=== PATIENT | female | born 1965 | race Caucasian/White ===

== ENCOUNTER 2016-12-20 10:20 | Observation (INO) ==
[2016-12-20] MEDS ORDERED: Ibuprofen 800 MG TABLET PO ONE (10:50)
--- NOTE | 2016-12-20 10:50 | Emergency Department Note ---
Disposition Clinical Impression: Kidney stone on right side, CHLOE (acute kidney injury), Hydronephrosis with renal calculous obstruction Disposition: Admitted As Inpatient Condition: Good Time of Disposition: 13:56 Abdominal Pain HPI - General Chief Complaint: ED Abdominal Pain Stated Complaint: R Flank Pain N/V Time Seen by Provider: 12/20/16 10:28 Source: patient Mode of arrival: ambulatory Limitations: no limitations Nursing Notes Reviewed: Yes Vital Signs Reviewed: Yes - History of Present Illness HPI Narrative: 51-year-old female presents with right flank pain and nausea. She was recently evaluated and diagnosed the right kidney stone last . He was reportedly 6 mm in size. She was given ibuprofen and Percocet to go home. She took the medications for only a day and symptoms have resolved. It wasn't until yesterday while driving home around 1700 she began to experience similar pain in the right flank and RLQ. She took Percocet at 2300 with resolution of symptoms. Since this morning she continues to have a dull ache that radiates to the right groin. Associated nausea and vomiting. Took Zofran prior to arrival with relief of symptoms. Denies any fever, recent illness, chest pain, shortness of breath. History of hysterectomy. No urinary complaints. Scheduled appointment with Dr. Bari Villalpando urologist Sunday 12/24. Pt Subjective Complaint: abdominal pain, flank pain Pain Scale: 5 - Related Data Home Medications Medication Instructions Recorded Confirmed Ibuprofen 800 mg PO Q8HR PRN 12/20/16 12/20/16 Ondansetron ODT [Zofran ODT] 4 mg SL Q6HR PRN 12/20/16 12/20/16 OxyCODONE/APAP 5/325 [Percocet 1 tab PO Q4HR PRN 12/20/16 12/20/16 5/325 MG] Allergies Allergy/AdvReac Type Severity Reaction Status Date / Time No Known Allergies Allergy Verified 12/13/16 01:09 All systems ED: reviewed and negative except as stated. Constitutional: Denies: fever, chills Cardiovascular: Denies: chest pain, dyspnea on exertion Respiratory: Denies: cough, dyspnea Gastrointestinal: Reports: abdominal pain, nausea, vomiting. Denies: diarrhea Genitourinary: Denies: urgency, dysuria, hematuria Musculoskeletal: Reports: back pain (right flank). Denies: neck pain Integumentary: Denies: rash, abrasion Neurological: Denies: headache, weakness Abdominal Pain PMH - Past Medical History Medical history: Reports: no medical history Female Surgical History: Reports: hysterectomy, other Psychiatric history: Reports: no psych history - Social History Smoking status: Never smoker Alcohol use: Reports: none Drug use: Reports: none Physical Exam - General Limitations: no limitations General appearance: alert, other (appears uncomfortable without position of ease ) - Head Head exam: atraumatic, normocephalic, normal inspection - Eye Eye exam: Present: normal appearance, PERRL, EOMI - ENT ENT exam: normal exam, normal oropharynx, mucous membranes moist - Neck Neck exam: Present: normal inspection, full ROM, trachea midline - Chest Chest inspection: Present: normal inspection, symmetric chest wall rise - Respiratory Respiratory exam: Present: normal lung sounds bilaterally. Absent: respiratory distress - Cardiovascular Cardiovascular exam: Present: regular rate, normal rhythm, normal heart sounds - Abdominal Exam Abdominal exam: Present: soft, tenderness, normal bowel sounds. Absent: distention, guarding, rebound, rigidity, psoas sign, Rovsing's sign, tenderness at McBurney's Point Abdominal tenderness: Present: RLQ - Extremities Exam Extremities exam: Present: normal inspection, full ROM, normal capillary refill. Absent: tenderness, pedal edema, calf tenderness - Back Exam Back exam: Present: normal inspection, full ROM, CVA tenderness (R). Absent: tenderness, CVA tenderness (L) - Neurological Exam Neurological exam: Present: alert, oriented X3 - Psychiatric Psychiatric exam: Present: normal affect, normal mood - Skin Skin exam: Present: warm, dry, intact, normal color Course Course Narrative: 51-year-old female with recently diagnosed renal stone. Reports nausea and vomiting with symptoms returning last night. Patient is afebrile and appears uncomfortable. She is hypertensive 172/101 likely secondary to pain and discomfort. Mucous membranes are moist. Heart and lung normal. Abdomen is soft and mildly tender to the RLQ. No McBurney's point. Pain radiates from right flank with CVA tenderness. Will check urinalysis for possible septic stone. Given sudden return of symptoms concern for obstructed stone, will repeat CT scan. Also get CBC and chemistries to evaluate kidney function. Offered percocet for discomfort but she would prefer ibuprofen at this time. No nausea as she just took Zofran. Disposition pending results. - Reevaluation(s) Reevaluation #1: Review of CT and labs. Scan reveals stone in right UVJ 6.9mm that has not moved. Will consult with on-call urologist Dr. Purvis for further management. Pain is controlled at this time after ibuprofen after offered Percocet. Mild CHLOE 1.29. Will order IV fluids. Time: 12:14 Reevaluation #2: Requested to go home and follow as an outpatient since symptoms have improved with Ibuprofen here. She continues to have Percocet and Ibuprofen with her. Spoke again with Dr. Purvis who reports no availability for outpatient surgery until Saturday, patient agrees with admission at this time. Will page hospitalist for admission. IV fluids given. Urine is not consistent with infection. Time: 12:20 - Consultations Consultation #1: Spoke with Dr. Purvis, urologist, recommends admission to hospitalist. No emergent surgery for removal at this time. Time: 12:14 Consultation #2: Spoke with hospitalist, yash Florez to admit for obstructing right kidney stone. Urology will consult. Time: 12:50 Vital Signs Temperature 98.1 F 12/20/16 10:21 Pulse Rate 82 12/20/16 10:21 Respiratory Rate 16 12/20/16 10:21 Blood Pressure 172/101 12/20/16 10:21 O2 Sat by Pulse Oximetry 95 12/20/16 10:21 Temperature 97.8 F 12/20/16 13:44 Pulse Rate 62 12/20/16 13:44 Respiratory Rate 16 12/20/16 13:44 Blood Pressure 147/83 12/20/16 13:44 O2 Sat by Pulse Oximetry 98 12/20/16 13:44 Oxygen Delivery Oxygen Delivery Room Air Abdominal Pain - Medical Records Medical records reviewed: Yes I reviewed the patient's medical records. - Lab Data Lab results reviewed: Yes I reviewed the patient's lab results. Result diagrams: 12/20/16 11:22 12/20/16 11:22 Lab Results 12/20/16 12/20/16 12/20/16 Range/Units 10:35 11:22 11:22 WBC 10.8 (4.3-11.1) K/mcL RBC 4.95 (3.82-4.97) M/mcL Hgb 13.9 (11.5-15.4) g/dL Hct 42.2 (35.3-44.9) % MCV 85.3 (83.0-100.0) fL MCH 28.1 (28.0-33.3) pg MCHC 32.9 (31.6-35.5) g/dL RDW 12.8 (11.5-14.5) % Plt Count 261 (140-400) K/mcL MPV 9.7 (9.4-12.4) fL Immature Gran % 0.4 (0-4) % Seg Neutrophils % 78.6 % Lymphocytes % 12.1 % Monocytes % 8.2 % Eosinophils % 0.1 % Basophils % 0.6 % Neutrophils # 8.5 (1.6-8.9) K/mcL Lymphocytes # 1.3 (0.6-4.6) K/mcL Monocytes # 0.9 (0.0-1.3) K/mcL Eosinophils # 0.0 (0.0-0.6) K/mcL Basophils # 0.1 (0.0-0.2) K/mcL Sodium 138 (136-145) mEq/L Potassium 4.0 (3.5-4.5) mEq/L Chloride 105 (98-109) mEq/L Carbon Dioxide 24 (19-29) mEq/L BUN 16 (7-20) mg/dL Creatinine 1.29 H (0.57-1.11) mg/dL Est GFR ( Amer) 53 L (> 60) Est GFR (Non-Af Amer) 44 L (> 60) BUN/Creatinine Ratio 12 (6-26) Glucose 105 H (70-99) mg/dL Calculated Osmolality 288 (280-300) Calcium 9.5 (8.6-10.8) mg/dL Urine Color Yellow (Yellow) Urine Clarity Clear (Clear) Urine pH 7.0 (5.0-8.0) pH Units Ur Specific [place] 1.015 (1.010-1.025) Urine Protein Negative (Neg-Trace) mg/dL Urine Glucose (UA) Normal (Normal) mg/dL Urine Ketones Negative (Negative) mg/dL Urine Blood Negative (Negative) Urine Nitrite Negative (Negative) Urine Bilirubin Negative (Negative) Urine Urobilinogen Normal (Normal) mg/dL Ur Leukocyte Esterase Negative (Negative) Ur Culture Indicated? NO (NO) - Radiology Data Radiology results reviewed: Yes I reviewed the patient's radiology results. Abdomen/Pelvis CT 12/20/16 11:14 IMPRESSION: Again identified is a 3.5 x 6.9 mm distal right ureteral stone, which is unchanged in position compared to the previous examination with moderate associated hydronephrosis and hydroureter. Again identified are 2 separate 3 mm noncalcified nodules in the right lung base. Follow-up recommendations previously described, as below. No other acute process seen. RECOMMENDATIONS: Fleischner Society guidelines for follow-up and management of incidentally detected pulmonary nodules: Multiple Solid Nodules: Nodule size less than 6 mm In a low-risk patient, no routine follow-up. In a high-risk patient, optional CT at 12 months. - Low risk patients include individuals with minimal or absent history of smoking and other known risk factors. - High risk patients include individuals with a history or smoking or known risk factors. Radiology 2017 http://pubs.rsna.org/doi/full/10.1148/radiol.[email or web address] D/ / Everton Milan MD / Everton Milan MD Interpreting Provider: Everton Milan MD
--- NOTE | 2016-12-20 11:23 | Emergency Department Note ---
START Narrative - START START: I examined this patient and my medical decision-making was reviewed with the LIVING ADVISOR/PA/Advanced Practice Nurse/Resident Physician. I agree with the documented findings, disposition and treatment plan as described except to the extent set forth below. ED attending note: Patient seen with emergency medicine resident Dr. Bhatia. Please see a copy of his note for details of the H&P, evaluation, management and disposition of this patient. We independently had [id number] contact with the patient Briefly: A 51-year-old female seen at [facility] last week and worked up and diagnosed with ureteral stone. About 6 mm at the UVJ. She has been asymptomatic until this morning where her pain which she said was identical to her presentation a week ago. And some nausea. Denies fever or chills. Patient will have a urinalysis lab work and repeat CT. Patient getting analgesics. Disposition pending.
[2016-12-20 11:36] LABS: Eosinophils % 0.1 %; Hematocrit 42.2 % (35.3-44.9); Hemoglobin 13.9 g/dL (11.5-15.4); Immature Granulocytes % 0.4 % (0-4); Lymphocytes % 12.1 %; Mean Corpuscular HGB Conc 32.9 g/dL (31.6-35.5); Mean Corpuscular Hemoglobin 28.1 pg (28.0-33.3); Mean Corpuscular Volume 85.3 fL (83.0-100.0); Mean Platelet Volume 9.7 fL (9.4-12.4); Monocytes % 8.2 %; Platelet Count 261 K/mcL (140-400); Red Blood Count 4.95 M/mcL (3.82-4.97); Red Cell Distribution Width 12.8 % (11.5-14.5); Segmented Neutrophils % 78.6 %
[2016-12-20 11:37] LABS: Basophils # 0.1 K/mcL (0.0-0.2); Basophils % 0.6 %; Lymphocytes # 1.3 K/mcL (0.6-4.6); Monocytes # 0.9 K/mcL (0.0-1.3); Neutrophils # 8.5 K/mcL (1.6-8.9)
[2016-12-20 11:41] LABS: Calcium 9.5 mg/dL (8.6-10.8)
[2016-12-20 12:05] LABS: Bilirubin,Urine Negative (Negative); Blood,Urine Negative (Negative); Clarity,Urine Clear (Clear); Color,Urine Yellow (Yellow); Glucose,Urine (UA) Normal (Normal); Ketones,Urine Negative (Negative); Leukocyte Esterase,Urine Negative (Negative); Nitrite,Urine Negative (Negative); Protein,Urine Negative (Neg-Trace); Specific Gravity,Urine 1.015 (1.010-1.025); Urobilinogen,Urine Normal (Normal)
[2016-12-20] MEDS ORDERED: 0.9 % Sodium Chloride 1,000 ML IVC ONE (12:29)
[2016-12-20] MEDS ORDERED: Naloxone 0.4 MG/ML INJ IVP PRN (13:57)
[2016-12-20] MEDS ORDERED: Ondansetron 4 MG/2 ML VIAL IVP PRN (13:58)
[2016-12-20] MEDS ORDERED: *HR* Morphine 2 MG/ML SYRINGE IVP PRN (13:58)
[2016-12-20] MEDS ORDERED: 0.9 % Sodium Chloride 1,000 ML IVC SCH (14:00)
--- NOTE | 2016-12-20 14:06 | Internal Med History&Physical ---
<Chanell Olivares - Last Filed: 12/20/16 14:22> Date of Encounter: 12/20/16 Time of Encounter: 14:01 Assessment and Plan (1) CHLOE (acute kidney injury) Current visit: Yes Status: Acute 1 patient's creatinine is 1.29. Baseline is around 0.74. related to stone obstruction. We will continue to monitor creatinine 2 continue with IV fluids 3 avoid nephrotoxins no NSAIDs 4 monitor intake and output (2) Kidney stone on right side Current visit: Yes Status: Acute 1 patient was diagnosed with 3.5 x 6.9 right ureteral stone week was given pain medication and anti-emetics and was sent home. Patient was doing well until last evening when she developed pain nausea and vomiting unable to keep down pain medication. Repeat CT of abdomen revealed stone in same position with moderate associated hydronephrosis and hydroureter. I did consult urology and spoke with Dr. Purvis he states he will see the patient today with possible intervention tomorrow morning. 2 patient nothing by mouth after midnight 3 continue with IV fluids 4 continue with pain medication and antiemetic (3) Pulmonary nodule Current visit: No Status: Acute (4) DVT prophylaxis Current visit: Yes Status: Acute [place] [facility] Internal Medicine - H&P: HPI Admitted From: Emergency Dept Plans for Post Hospital Care: Home History of present illness: Ms. Holloway is a 51 year old female no past medical history. According to the patient she was here last was diagnosed with 33.5 x 6.9 mm distal right ureteral stone at that time she was given pain medication as well as antiemetics and was sent home. She said she was doing well and was pain-free up until approximately 5:30 PM last night when she experienced a sharp stabbing pain in right lower abdomen. she did take her pain medication and did relieve her pain however the proxy 12:30 the pain returned was more intense again she took medication it eased the pain this morning she developed nausea and vomiting was unable to keep anything down. She did take an antiemetic which did ease the vomiting. She denies any fevers chills diarrhea chest pain shortness of breath She presented to the ER with the above complaints according to ER records lab work did reveal patient did have some AK I with creatinine 1.29. Appears her baseline is around 0.74. Patient states that she has been able to eat and drink up until yesterday and has been urinating without difficulty. CT scan of abdomen and pelvis again identified a 3.5 x 6.9 mm distal right ureteral stone with moderate associated hydronephrosis and hydroureter. ER physician speaks with Dr. Suarez urology, advised to admit patient Patient has been admitted for further workup and evaluation. Presently patient complains of very mild right-sided lower abdominal pain she rates at 2 out of 10 dull. She does not appear to be in respiratory distress denies any chest pain or shortness of breath her lung sounds are clear heart sounds S1 and S2 with no rubs clicks, murmurs noted abdomen soft nontender palpation no lower extremity edema noted. Presently she is hemodynamically stable. I reviewed this case with who agrees with plan. Past Med Surg Social Fam HX - Past Medical History Medical history: no medical history Psychiatric history: no psych history - Social History Smoking Status: Never smoker Smokeless Tobacco Status: No Alcohol use: none Drug use: none - Additional Family History Additional family history: Reviewed and noncontributory Internal Medicine - H&P: Meds Ibuprofen 800 mg PO Q8HR PRN 12/20/16 [History] Ondansetron ODT [Zofran ODT] 4 mg SL Q6HR PRN 12/20/16 [History] OxyCODONE/APAP 5/325 [Percocet 5/325 MG] 1 tab PO Q4HR PRN 12/20/16 [History] Allergies No Known Allergies Allergy (Verified 12/13/16 01:09) All Systems PM: A 10-system review of systems was performed and is negative for pertinent findings except as documented above in the HPI. - Constitutional Constitutional: no chills, no fever(s), no night sweats - EENT Eyes: no change in vision, no discharge, no pain, no photophobia Nose, mouth and throat: no dysphagia, no nasal discharge, no neck pain, no sore throat - Cardiovascular Cardiovascular ROS IM: no chest pain, no diaphoresis, no dyspnea, no lightheadedness, no palpitations, no syncope - Respiratory Respiratory: no cough, no dyspnea, no wheezing, no excessive phlegm production - Gastrointestinal Gastrointestinal: abdominal pain, nausea, vomiting - Genitourinary Genitourinary: no change in urinary stream, no dysuria, no flank pain, no hematuria - Musculoskeletal Musculoskeletal ROS IM: no numbness, no tingling - Integumentary Integumentary IM: no rash, no unusual bruising - Neurological Neurological ROS: no confusion, no convulsions, no focal weakness, no numbness, no tingling, no tremor(s) - Constitutional Vitals: Temp Pulse Resp BP Pulse Ox 97.8 F 62 16 147/83 98 12/20/16 13:44 12/20/16 13:44 12/20/16 13:44 12/20/16 13:44 12/20/16 13:44 General appearance: Present: A&O X 3, answers questions appropriately - Head Head exam: Present: atraumatic, normocephalic - Eye Eye exam: Present: PERRL, conjuntiva pink, sclera anicteric Pupils: Present: PERRL - Neck Neck exam general surgery: Present: supple, trachea midline. Absent: lymphadenopathy - Respiratory Respiratory exam: Present: CTAB. Absent: accessory muscle use, rales, rhonchi, wheezes - Cardiovascular Cardiovascular exam: Present: RRR, +S1, +S2. Absent: diastolic murmur, gallop, rubs, systolic murmur - GI/Abdominal GI/Abdominal exam: Present: normal bowel sounds, soft, no peritoneal signs. Absent: distended, tenderness - Extremities Exam Extremities exam: Present: warm, radial pulses palpable and symetrical. Absent : calf tenderness, cyanotic, pedal edema - Neurological Exam Neurological exam: Present: CN II-XII intact, oriented X3, no focal deficits. Absent: pronater drift, facial droop, speech deficit - Skin Skin exam: Present: dry, intact Internal Med - H&P Results - Labs CBC & Chem 7: 12/20/16 11:22 12/20/16 11:22 - Diagnostic Studies Other Images Additional comments: Abdomen/Pelvis CT 12/20/16 11:14 IMPRESSION: Again identified is a 3.5 x 6.9 mm distal right ureteral stone, which is unchanged in position compared to the previous examination with moderate associated hydronephrosis and hydroureter. Again identified are 2 separate 3 mm noncalcified nodules in the right lung base. Follow-up recommendations previously described, as below. No other acute process seen. RECOMMENDATIONS: Fleischner Society guidelines for follow-up and management of incidentally detected pulmonary nodules: Multiple Solid Nodules: Nodule size less than 6 mm In a low-risk patient, no routine follow-up. In a high-risk patient, optional CT at 12 months. - Low risk patients include individuals with minimal or absent history of smoking and other known risk factors. - High risk patients include individuals with a history or smoking or known risk factors. Radiology 2017 http://pubs.rsna.org/doi/full/10.1148/radiol.3028933152 D/ / Everton Milan MD / Everton Milan MD Interpreting Provider: Everton Milan MD <Craig Shelton - Last Filed: 12/20/16 19:58> Date of Encounter: 12/20/16 Internal Medicine - H&P: HPI History of present illness: Ms. Holloway is a 51 year old female All Systems PM: A 10-system review of systems was performed and is negative for pertinent findings except as documented above in the HPI. - Constitutional Vitals: Temp Pulse Resp BP Pulse Ox 99.5 F 68 18 138/85 97 12/20/16 19:30 12/20/16 19:30 12/20/16 19:30 12/20/16 19:30 12/20/16 19:30 Internal Med - H&P Results - Labs CBC & Chem 7: 12/20/16 11:22 12/20/16 11:22 - Attending Attestation I examined this patient and my medical decision-making was reviewed with the DIE MAKER STAMPING/PA/Advanced Practice Nurse/Resident Physician. I agree with the documented findings, disposition and treatment plan as described except to the extent set forth below. She did not and admitted with right lower quadrant abdominal pain. Currently she tells me that the pain is mild and tolerable. On exam she is in no acute distress awake alert oriented. Heart is regular. Lungs are clear to auscultation bilaterally. Abdomen is soft and nontender Plan: IV fluids, IV opiates for pain. IV Zofran for nausea. Nothing by mouth after midnight. Stone extraction tomorrow if she does not pass. She is at high risk for morbidity and mortality and complications due to treatment with IV controlled substances.
[2016-12-20] MEDS: *HR* HYDROcodone/Acet 5/325 mg TABLET PO PRN ×2 (14:43→22:29)
--- NOTE | 2016-12-20 16:30 | Urology - Consult Note ---
Date of Encounter: 12/20/16 Time of Encounter: 16:27 - Assessment and Plan (1) Right ureteral stone Current Visit: Yes Status: Acute Assessment and plan: plan on medical expulsion today. if has not passed stone by tomorrow will plan on surgical removal. Urology CN:KESHIA Consult date: 12/20/16 Reason for consult Urology: Other (right ureteral stone) Requesting physician: Chanell Olivares History of present illness: Sari is a 51 y/o female with 1 week of right flank pain. she was found last week to have a distal right ureteral stone. She came back to the ED today secondary to right flank pain. 10/10 sharp in nature. + nausea. Has had some sig HTN when arrival to the ED. Pain better controlled at this time. stone is 3x6mm in right distal ureter. Past Med Surg Social Fam HX - Past Medical History Medical history: no medical history Psychiatric history: no psych history - Past Surgical History Surgical History: hysterectomy - Social History Smoking Status: Never smoker Smokeless Tobacco Status: No Alcohol use: none Drug use: none Medications and Allergies Ibuprofen 800 mg PO Q8HR PRN 12/20/16 [History] Ondansetron ODT [Zofran ODT] 4 mg SL Q6HR PRN 12/20/16 [History] OxyCODONE/APAP 5/325 [Percocet 5/325 MG] 1 tab PO Q4HR PRN 12/20/16 [History] Allergies No Known Allergies Allergy (Verified 12/13/16 01:09) Review of Systems - Constitutional no chills - EENT Nose, mouth and throat: no dizziness - Cardiovascular no chest pain - Respiratory no cough - Gastrointestinal no abdominal pain Exam Initial Vital Signs Temp Pulse Resp BP Pulse Ox 98.1 F 82 16 172/101 95 12/20/16 10:21 12/20/16 10:21 12/20/16 10:21 12/20/16 10:21 12/20/16 10:21 - General physical appearance Present: well developed - Respiratory Present: normal respiratory effort - Cardiovascular Cardiovascular exam IM: RRR - Abdomen Abdomen: Present: soft - Integumentary Present: no rash - Neurologic Present: normal coordination Urology Results - Labs 12/20/16 11:22 12/20/16 11:22 Abnormal lab results Creatinine 1.29 mg/dL (0.57-1.11) H 12/20/16 11:22 Est GFR ( Amer) 53 (> 60) L 12/20/16 11:22 Est GFR (Non-Af Amer) 44 (> 60) L 12/20/16 11:22 Glucose 105 mg/dL (70-99) H 12/20/16 11:22 All other labs normal. - Imaging CT scan - abdomen: image reviewed CT scan - pelvis: image reviewed Consult Discharge Plan - Plan Referrals: Shannon Anthony MD [Partnered Physician] - 12/31/16 10:45 am
--- NOTE | 2016-12-20 20:56 | Anesthesia Evaluation PreOp ---
Date of Encounter: 12/20/16 Time of Encounter: 20:45 - Past History Planned Operation: Rt USE Cardiac History: Denies any Significant Hx Pulmonary History: Denies Any Significant HX CONSULTING BUSINESS DEVELOPER History: Denies Any Significant HX Other Medical History: Denies Any Significant HX Anesthesia History: No Prior Anesthetic Complications : No (Hysterectomy) Alcohol Use: none Drug use: none Medications and Allergies Ibuprofen 800 mg PO Q8HR PRN 12/20/16 [History] Ondansetron ODT [Zofran ODT] 4 mg SL Q6HR PRN 12/20/16 [History] OxyCODONE/APAP 5/325 [Percocet 5/325 MG] 1 tab PO Q4HR PRN 12/20/16 [History] Allergies No Known Allergies Allergy (Verified 12/13/16 01:09) - Meds/Allergy Pre-op Review Medications Reviewed: Yes Allergies Reviewed: Yes Beta Blockers on Current Med List: No Anesthesia Results - Labs 12/20/16 11:22 12/20/16 11:22 Anesthesia Exam O2 Sat Height 1.65 m Height 1.65 m Weight 81.42 kg Weight 81.556 kg O2 Sat by Pulse Oximetry 97 O2 Sat by Pulse Oximetry 98 O2 Sat by Pulse Oximetry 97 O2 Sat by Pulse Oximetry 95 Vital Signs Temp Pulse Resp BP Pulse Ox 98.1 F 82 16 172/101 95 12/20/16 10:21 12/20/16 10:21 12/20/16 10:21 12/20/16 10:21 12/20/16 10:21 Height: 5'5 Weight: 179 lbs NPO (# of Hours): MN Pain Scale: 0 - HEENT Pupil (Motor): Pupils equal, EOMI Mallampati: II Teeth: Normal Oral Opening: Greater than 3 - CONSULTING BUSINESS DEVELOPER LOC: Oriented CONSULTING BUSINESS DEVELOPER Motor: Normal RUE, Normal LUE, Normal RLE, Normal LLE, Normal Face CONSULTING BUSINESS DEVELOPER Sensory: Normal: RUE, LUE, RLE, LLE, Face - Cardiac Rhythm: Regular Murmur: None JVD: No Carotid Bruit: No - Pulmonary Breath Sounds: bilateral Clear Respiratory Effort: Symmetrical Anesthesia Assess/Plan ASA Score: 1 Modified Holloway Scale for Level of Consciousness: Cooperative, oriented, and tranquil Anesthetic Plan: General Recovery Plan: PACU (Discussed GA, agrees to proceed)
[2016-12-20] MEDS: 0.9 % Sodium Chloride 1,000 ML IVC SCH (22:40)
[2016-12-21] MEDS: 0.9 % Sodium Chloride 1,000 ML IVC SCH (05:36)
[2016-12-21 06:28] LABS: Basophils # 0.1 K/mcL (0.0-0.2); Basophils % 1.1 %; Eosinophils # 0.1 K/mcL (0.0-0.6); Hematocrit 36.1 % (35.3-44.9); Immature Granulocytes % 0.2 % (0-4); Immature Platelets 2.3 % (1.1-6.1); Lymphocytes # 1.9 K/mcL (0.6-4.6); Lymphocytes % 34.5 %; Mean Corpuscular HGB Conc 33.2 g/dL (31.6-35.5); Mean Corpuscular Hemoglobin 28.6 pg (28.0-33.3); Mean Corpuscular Volume 86.2 fL (83.0-100.0); Mean Platelet Volume 10.1 fL (9.4-12.4); Monocytes # 0.7 K/mcL (0.0-1.3); Monocytes % 12.5 %; Neutrophils # 2.8 K/mcL (1.6-8.9); Platelet Count 216 K/mcL (140-400); Red Blood Count 4.19 M/mcL (3.82-4.97); Red Cell Distribution Width 13.1 % (11.5-14.5); Segmented Neutrophils % 49.7 %
[2016-12-21 06:42] LABS: BUN/Creatinine Ratio 11 (6-26); Blood Urea Nitrogen 10 mg/dL (7-20); Calcium 8.5 mg/dL (8.6-10.8); Carbon Dioxide 24 mEq/L (19-29); Chloride 110 mEq/L (98-109); Glucose 90 mg/dL (70-99); Osmolality,Calculated 289 (280-300); Potassium 3.7 mEq/L (3.5-4.5); Sodium 140 mEq/L (136-145); eGFR For African Americans > 60 (> 60); eGFR For Non-African Americans > 60 (> 60)
--- NOTE | 2016-12-21 07:25 | Urology Progress Note ---
Date of Encounter: 12/21/16 Time of Encounter: 07:25 - Assessment and Plan (1) Right ureteral stone Current Visit: Yes Status: Acute Assessment and plan: to OR today for stone extraction. Progress Note Narrative: Patient seen. has not passed stone. pain controlled. Objective Initial Vital Signs Temp Pulse Resp BP Pulse Ox 98.1 F 82 16 172/101 95 12/20/16 10:21 12/20/16 10:21 12/20/16 10:21 12/20/16 10:21 12/20/16 10:21 - General physical appearance Present: well developed - Abdomen Present: soft - Labs 12/21/16 06:11 12/21/16 06:11 Diabetes panel 12/21/16 Range/Units 06:11 Sodium 140 (136-145) mEq/L Potassium 3.7 (3.5-4.5) mEq/L Chloride 110 H (98-109) mEq/L Carbon Dioxide 24 (19-29) mEq/L BUN 10 (7-20) mg/dL Creatinine 0.95 (0.57-1.11) mg/dL Glucose 90 (70-99) mg/dL Calcium 8.5 L (8.6-10.8) mg/dL Calcium panel 12/21/16 Range/Units 06:11 Calcium 8.5 L (8.6-10.8) mg/dL Pituitary panel 12/21/16 Range/Units 06:11 Sodium 140 (136-145) mEq/L Potassium 3.7 (3.5-4.5) mEq/L Chloride 110 H (98-109) mEq/L Carbon Dioxide 24 (19-29) mEq/L BUN 10 (7-20) mg/dL Creatinine 0.95 (0.57-1.11) mg/dL Glucose 90 (70-99) mg/dL Calcium 8.5 L (8.6-10.8) mg/dL Adrenal panel 12/21/16 Range/Units 06:11 Sodium 140 (136-145) mEq/L Potassium 3.7 (3.5-4.5) mEq/L Chloride 110 H (98-109) mEq/L Carbon Dioxide 24 (19-29) mEq/L BUN 10 (7-20) mg/dL Creatinine 0.95 (0.57-1.11) mg/dL Glucose 90 (70-99) mg/dL Calcium 8.5 L (8.6-10.8) mg/dL Consult Discharge Plan - Plan Referrals: Shannon Anthony MD [Partnered Physician] - 12/31/16 10:45 am
[2016-12-21] MEDS ORDERED: *HR* Midazolam HCl 2 MG/2 ML VIAL ONE (07:52)
[2016-12-21] MEDS ORDERED: Dexamethasone 4 MG/ML VIAL ONE (07:52)
[2016-12-21] MEDS ORDERED: *HR* FentaNYL (PF) 100 MCG/2 ML VIAL ONE (07:52)
[2016-12-21] MEDS ORDERED: *HR* Propofol 200 MG/20 ML VIAL IVP ONE (07:52)
[2016-12-21] MEDS ORDERED: Ondansetron 4 MG/2 ML VIAL ONE (07:52)
[2016-12-21] MEDS ORDERED: Lidocaine -MPF 2% 2 ML VIAL ONE (07:52)
--- NOTE | 2016-12-21 09:47 | Internal Med Progress Note ---
Date of Encounter: 12/21/16 Time of Encounter: 09:45 - Assessment and plan (1) Pulmonary nodule Current Visit: No Status: Acute Assessment and plan: 3 mm of multiple pulmonary nodule on the right side of undetermined significance. She will be referred to pulmonology as outpatient for follow-up. Further imaging will be performed during this hospital stay. According to radiology the size of the nodule has not changed from the previous CAT scan. (2) CHLOE (acute kidney injury) Current Visit: Yes Status: Acute Assessment and plan: Mildly elevated creatinine in the range of 1.3 which is improved with hydration now it is back to normal (3) Hydronephrosis with renal calculous obstruction Current Visit: Yes Status: Acute Assessment and plan: Right ureteric 3.5/6.9 mm stone which has failed medical treatment and causing symptoms including hydronephrosis therefore patient will be going for surgery. (4) Right ureteral stone Current Visit: Yes Status: Acute Assessment and plan: right ureteric 3.5/6.9 mm stone which has failed medical treatment and causing symptoms including hydronephrosis therefore patient will be going for surgery. - Subjective Interval history: Mrs. Sari Holloway is a 51-year-old female with no significant past medical history presented with 1 week history of right renal colic with a 3.5 mm/6.9 mm right ureteric stone demonstrated on CAT scan. She failed medical treatment and urology has seen her and Dr. Ranjan Purvis is planning to take her to OR today. For this reason she is only on SCDs for DVT prophylaxis. - Constitutional Vitals: Temp Pulse Resp BP Pulse Ox 98.1 F 68 18 115/78 95 12/21/16 07:36 12/21/16 07:36 12/21/16 07:36 12/21/16 07:36 12/21/16 07:36 General appearance: Present: A&O X 3, answers questions appropriately - Head Head exam: Present: atraumatic, normocephalic - Eye Eye exam: Present: PERRL, conjuntiva pink, sclera anicteric Pupils: Present: PERRL - Neck Neck exam general surgery: Present: supple, trachea midline. Absent: lymphadenopathy - Respiratory Respiratory exam: Present: CTAB. Absent: accessory muscle use, rales, rhonchi, wheezes - Cardiovascular Cardiovascular exam: Present: RRR, +S1, +S2. Absent: diastolic murmur, gallop, rubs, systolic murmur - GI/Abdominal GI/Abdominal exam: Present: normal bowel sounds, soft, no peritoneal signs. Absent: distended, tenderness - Extremities Exam Extremities exam: Present: warm, radial pulses palpable and symetrical. Absent : calf tenderness, cyanotic, pedal edema - Neurological Exam Neurological exam: Present: CN II-XII intact, oriented X3, no focal deficits. Absent: pronater drift, facial droop, speech deficit - Skin Skin exam: Present: dry, intact Internal Medicine: Result - Labs CBC & Chem 7: 12/21/16 06:11 12/21/16 06:11 Labs: Short CBC 12/21/16 Range/Units 06:11 WBC 5.6 (4.3-11.1) K/mcL Hgb 12.0 D (11.5-15.4) g/dL Hct 36.1 (35.3-44.9) % Plt Count 216 (140-400) K/mcL Neutrophils # 2.8 (1.6-8.9) K/mcL BMP 12/21/16 06:11 Sodium 140 Potassium 3.7 Chloride 110 H Carbon Dioxide 24 BUN 10 Creatinine 0.95 Glucose 90 Calcium 8.5 L Consult Discharge Plan - Plan Referrals: Shannon Anthony MD [Partnered Physician] - 12/31/16 10:45 am
--- NOTE | 2016-12-21 09:54 | Discharge Summary ---
Date of Encounter: 12/21/16 Time of Encounter: 14:48 - Discharge Diagnosis (1) Pulmonary nodule Priority: Secondary Status: Acute (2) CHLOE (acute kidney injury) Priority: Secondary Status: Acute (3) Hydronephrosis with renal calculous obstruction Priority: Secondary Status: Acute (4) Right ureteral stone Priority: Primary Status: Acute - Discharge Medications Home Medications: Ibuprofen 800 mg PO Q8HR PRN 12/20/16 [History] Ondansetron ODT [Zofran ODT] 4 mg SL Q6HR PRN 12/20/16 [History] OxyCODONE/APAP 5/325 [Percocet 5/325 MG] 1 tab PO Q4HR PRN 12/20/16 [History] Allergies/Adverse Reactions: Allergies No Known Allergies Allergy (Verified 12/13/16 01:09) Date of admission: 12/20/16 12:53 Primary care physician: PCP NO Consults: 12/20/16 13:47 Consult to Urology [CONS] Stat Consulting Provider: Urology Suzanne Reason for Consult: RETAINED RIGHT STONE 6.9MM Call Completed: Yes Discharging clinician: Sean Faith Anticipated date of discharge: 12/21/16 - Patient Status Disposition: Home, Self-Care Condition: Good Overall status at discharge: patient is back to baseline - Discharge Instructions Follow Up With: Shannon Anthony MD [Partnered Physician] - 12/31/16 10:45 am - Diet and Activity Activity: resume usual activities as tolerated Diet: advance to your usual diet Interval History: Ms. Sari Holloway is a 51-year-old female who was presented with 1 week history of right renal colic due to 6.9 x 3.5 mm renal stone in right ureter which failed medical treatment. Urology was consulted and Dr. Purvis performed a procedure. On admission her creatinine was slightly elevated with got better with hydration. Patient has 3 mm nodules in the right lung which has not changed from previous examination patient will be referred to pulmonology or her primary care to follow on those. They all of undetermined significance. Hospital course: Ms. Holloway is a 51 year old female admitted for right ureteric stone which failed medical treatment. Urology was consulted to quit OR today and his stone has been removed. If patient is stable and urology is agreeable she can be discharged home. - Time Spent with Patient Total time spent providing and/or coordinating discharge services: Less than 30 minutes - Constitutional Vitals: Temp Pulse Resp BP Pulse Ox 98.1 F 68 18 115/78 95 12/21/16 07:36 12/21/16 07:36 12/21/16 07:36 12/21/16 07:36 12/21/16 07:36 General appearance: Present: A&O X 3, answers questions appropriately - Head Head exam: Present: atraumatic, normocephalic - Eye Eye exam: Present: PERRL, conjuntiva pink, sclera anicteric Pupils: Present: PERRL - Neck Neck exam general surgery: Present: supple, trachea midline. Absent: lymphadenopathy - Respiratory Respiratory exam: Present: CTAB. Absent: accessory muscle use, rales, rhonchi, wheezes - Cardiovascular Cardiovascular exam: Present: RRR, +S1, +S2. Absent: diastolic murmur, gallop, rubs, systolic murmur - GI/Abdominal GI/Abdominal exam: Present: normal bowel sounds, soft, no peritoneal signs. Absent: distended, tenderness - Extremities Exam Extremities exam: Present: warm, radial pulses palpable and symetrical. Absent : calf tenderness, cyanotic, pedal edema - Neurological Exam Neurological exam: Present: CN II-XII intact, oriented X3, no focal deficits. Absent: pronater drift, facial droop, speech deficit - Skin Skin exam: Present: dry, intact
[2016-12-21] MEDS ORDERED: *HR* Promethazine 25 MG/ML VIAL IVP PRN (11:35)
[2016-12-21] MEDS ORDERED: *HR* HYDROmorphone (PF) 1 MG/ML SYRINGE IVP PRN (11:35)
[2016-12-21] MEDS ORDERED: *HR* Labetalol 20 MG/4 ML SYRINGE IVP PRN (11:35)
[2016-12-21] MEDS ORDERED: Ketorolac 30 MG/ML VIAL ONE (12:04)
--- NOTE | 2016-12-21 12:13 | Operative Note ---
Date of procedure: 12/21/16 Pre-op diagnosis: right distal ureteral stone Post-op diagnosis: same Procedure: Right ureteroscopic laser lithotripsy of stone, right ureteroscopic basket retrieval stone fragment, right 4.8 x 26 cm ureteral stent placement Anesthesia: STEFANIEA Surgeon: Ranjan Purvis Specimen: Right ureteral stone Condition: stable Disposition: PACU Procedure in Detail: Patient was prepped and draped in normal sterile fashion. Timeout procedure performed. I then inserted the semirigid ureteroscope into the patient's bladder. I cannulated the right ureteral orifice using the scope. I encountered the distal 4 mm stone. I used the holmium laser to fragment the stone. All stone fragments were removed using a nitinol tip was basket. The distal portion of the ureter was quite inflamed and irritated and thus I placed a sensor wire into the right kidney and placed a 4.8 x 26 cm stent with good curl seen in the kidney and in the bladder using fluoroscopy. String was left for easy removal in 2-3 days.
--- NOTE | 2016-12-21 12:14 | Event Note ---
Date of Encounter: 12/21/16 Time of Encounter: 12:13 Patient will remove her stent in 2-3 days. She will need to follow up with me in 2-3 weeks.
[2016-12-21] MEDS ORDERED: Naloxone 0.4 MG/ML INJ IVP PRN (12:54)
[2016-12-21] MEDS ORDERED: 0.9 % Sodium Chloride 1,000 ML IVC SCH (12:54)
[2016-12-21] MEDS ORDERED: *HR* Morphine 2 MG/ML SYRINGE IVP PRN (12:54)
[2016-12-21] MEDS ORDERED: *HR* HYDROcodone/Acet 5/325 mg TABLET PO PRN (12:54)
[2016-12-21] MEDS ORDERED: Ondansetron 4 MG/2 ML VIAL IVP PRN (12:54)
--- NOTE | 2016-12-21 13:05 | Anesthesia Evaluation Post Op ---
Date of Encounter: 12/21/16 Time of Encounter: 12:39 - Vital Signs Vital Signs: Vital Signs - Last 8 Hours Temp Pulse Resp BP Pulse Ox 12/21/16 12:47 98.0 F 74 16 137/87 97 12/21/16 12:39 70 16 127/74 97 12/21/16 12:29 65 14 114/74 97 12/21/16 12:19 98.1 F 55 12 110/72 100 12/21/16 10:24 95 12/21/16 07:36 98.1 F 68 18 115/78 95 12/21/16 05:47 98.2 F 64 14 118/78 96 Intake and Output 12/20/16 12/21/16 12/21/16 23:59 07:59 15:59 Intake Total 582 / 582 1000 / 1000 Output Total 300 / 300 900 / 900 0 / 0 Balance 282 / 282 100 / 100 0 / 0 Intake: IV Fluids 222 / 222 1000 / 1000 0.9 % Sodium Chloride 1, 222 / 222 1000 / 1000 000 ML @ 150 mls/hr IVC . [id number] [facility] Rx#:[id number] Oral 360 / 360 0 / 0 Output: Urine 300 / 300 900 / 900 0 / 0 Estimated Blood Loss 0 / 0 Other: Meal Dinner NPO Percent of Meal Consumed 0% Weight 80.739 kg Patient Weight 12/21/16 23:59 Weight 80.739 kg - Lungs Lungs: Clear Ascult./Percussion - Airway Airway: Non-obstructed - Cardiovascular Regular Rate, Baseline Rhythm - Mental Status Mental Status: Alert & Oriented, Answers Appropriately - Pain Pain Scale: 0 Pain Scale used: Numeric (1 - 10) - Nausea Vomiting Nausea Vomiting: Not Present - Hydration Hydration: Tolerates oral liquids - Discharge PostOp Status: Transfer Patient to floor
[2016-12-21 14:02] VITALS: BP 132/86
== END 2016-12-21 15:15 | disposition home or self-care (01) ==
LOC: EMEROO 10:20 → 3ANU 10:20
PROVIDERS: ADMIT Internal Medicine; ATTEND Internal Medicine